=== PATIENT | female | born 1965 | race Caucasian/White ===

== ENCOUNTER 2021-10-29 08:00 | Outpatient (CLI) | payer OTHER | END 2021-10-29 23:59 | disposition home or self-care (01) | LOC: LAB.N 08:00 | PROVIDERS: ATTEND Physician Assistant Medical | DX: B34.9 Viral infection, unspecified (principal); Z20.822 Contact with and (suspected) exposure to COVID-19 ==

== ENCOUNTER 2022-08-17 08:14 | Outpatient (CLI) | payer OTHER ==
--- NOTE | 2022-08-19 12:15 | MRI Report ---
PROCEDURE: KNEE WO - LT INDICATIONS: LEFT KNEE PAIN TECHNIQUE: Noncontrast sagittal PD fast spin echo and T2 fast spin echo with fat saturation, sagittal 3-D gradie nt sequence with fat saturation; coronal T1 spin echo and PD fast spin echo with fat saturation, and axial PD fast spin echo with fat saturation through the knee. COMPARISON: None. FINDINGS: Image quality: Excellent. Menisci: There is medial meniscal extrusion. There is degenerative tear of the body and posterior hor n of the medial meniscus. The lateral meniscus demonstrates normal morphology. There is intrasubstanc e degeneration of the anterior horn of the lateral meniscus. The meniscal root ligaments appear inta ct. Cruciate ligaments: The anterior and posterior cruciate ligaments appear intact. Medial structures: There is mild thickening in the superior aspect of the medial collateral ligament , compatible with remote grade 1 sprain or scarring. No acute MCL tear. The semimembranosus tendon i nsertions, and meniscocapsular junction appear intact. Visualized portions of the pes anserinus tend ons appear normal. No abnormal bursal fluid. Lateral structures: The lateral collateral ligament, long and short heads of the biceps femoris tend on appear intact. The popliteus tendon appears normal. Iliotibial band appears normal. Anterior structures: The quadriceps and patellar tendons appear intact. Patellar alignment is dell l. No femoral trochlear dysplasia or ventral trochlear prominence. No edema in the infrapatellar fa t pad. Bones and cartilage: No bone marrow contusions or fractures. There is tricompartmental cartilage thi nning and fibrillation, most pronounced in the medial femorotibial compartment where near denuded art icular surface is seen in the medial femoral condyle and medial temporal plateau. There is prominent red marrow in the distal femur. Joint space: There is moderate knee joint fluid. Tiny Arauz's cyst. Normal appearing synovial plica e are incidentally noted. IMPRESSION: 1. Medial meniscal extrusion and degenerative tear of the body and posterior horn of the medial menis cus. 2. Tricompartmental cartilage thinning, most pronounced in the medial femorotibial compartment. 3. Moderate knee joint effusion. 4. Prominent red marrow in the distal femur. This finding is nonspecific and may be secondary to ciga rette smoking, strenuous hepatic activity were hematological disorder such as anemia. Recommend clini freeman correlation. Reviewed by: Jett Morel MD on 08/19/2022 11:14 AM LADONNA Approved by: Jett Morel MD on 08/19/2022 11:14 AM WISAI Station ID: [id number]
== END 2022-08-17 08:15 | disposition home or self-care (01) ==
LOC: DI 08:14
PROVIDERS: ATTEND Student in an Organized Health Care Education/Training Program
DX: S83.242A Other tear of medial meniscus, current injury, left knee, initial encounter (principal); M25.462 Effusion, left knee

== ENCOUNTER 2023-02-22 16:09 | Emergency (ER) | payer OTHER ==
--- OUTSIDE RECORDS SUMMARY | 2023-02-22 16:48 | EXTERNAL MEDICAL SUMMARY RPT | Continuity of Care Document ---
Author Name Unknown Address [address] [place] [address] Phone Organization [place] Address [address] [place] [address] Phone Problems date description facility 2022-12-13 10:01 Urinary tract infection, site n ot specified [facility] 2022-12-13 10:01 Hyperglycemia, unspecified [facility] 2022-12-13 10:01 Encounter for preprocedural lab oratory examination [facility] 2022-12-13 10:01 Encounter for other preprocedur al [facility] Results/Labs test date facility value unit notes
[2023-02-22] MEDS ORDERED: TETANUS/DIPHTHERIA/PERTUSSIS 0.5 ML SYRINGE IM ONE (16:51)
--- NOTE | 2023-02-22 17:18 | ED Physician Documentation ---
PD HPI UPPER EXT INJURY - Stated complaint Stated Complaint: LT HAND LAC - Chief complaint Chief Complaint: Laceration - History obtained from History obtained from: Patient - Additonal information Additional information: Patient is a 57-year-old female presenting for evaluation of laceration to her left pinky finger that occurred while peeling apples. She is unsure of her last tetanus. Does not take a blood thinner. She reports the side of blood makes her feel faint and was noted to have a low blood pressure at triage due to looking at her wound. Review of Systems Skin: reports: Laceration (s) PD PAST MEDICAL HISTORY - Present Medications Home Medications: Ambulatory Orders Medication Instructions Recorded Confirmed Sertraline [Zoloft] 50 mg PO DAILY 02/22/23 02/22/23 - Allergies Allergies/Adverse Reactions: Allergies Allergy/AdvReac Type Severity Reaction Status Date / Time No Known Drug Allergies Allergy Verified 02/22/23 16:18 PD ED PE NORMAL - General General: Alert and oriented X 3, No acute distress, Well developed/nourished - HEENT HEENT: Atraumatic - Respiratory Respiratory: No respiratory distress - Extremities Extremities: Other (1.5 cm laceration to Medial aspect of distal left pinky finger; Normal range of motion at PIP and DIP joints) Results - Vitals Vitals: Vital Signs - 24 hr 02/22/23 02/22/23 16:11 17:28 Temperature 36.1 C L Heart Rate 58 L 82 Respiratory 20 18 Rate Blood Pressure 70/46 L 94/61 O2 Saturation 98 100 Oxygen O2 Source Room air Procedures - Laceration (location) Left fifth digit Length in cm: 1 Wound type: Curved Neurovascular status: Sensory intact, Motor intact, Vascular intact Tendon involvement: Tendon intact Anesthesia: Lidocaine 1% Wound preparation: Hibiclens, Irrigated copiously NS Skin layer closure: Interrupted, Size #-0 - enter number (4.0), Sutures - enter # (5) Other: Patient tolerated well, No complications, Neurovascular intact, Dressing applied, Tetanus booster given PD Medical Decision Making - ED course Complexity details: re-evaluated patient ED course: Patient with laceration to her left pinky finger. No signs of tendon injury. Neurovascularly intact. Wound cleaned, irrigated and closed with sutures. Patient does report being very sensitive to the sight of blood and was hypotensive at triage and feeling lightheaded. She was allowed to lay down during suture repair and is feeling better. Repeat blood pressure has improved.She was given a tetanus booster. Patient counseled on wound care instructions, need to return for suture removal as well as concerning symptoms to return for. Departure - Departure Disposition: 01 Home, Self Care Clinical Impression: Laceration of left little finger, Vagal reaction Condition: Stable Instructions: ED Laceration Ext Sutr Stap Tape Comments: Come back for any signs of infection which would include: Redness, swelling, drainage, increased pain, or fevers. You can wash it soap and water. Keep it covered and moist with bacitracin ointment which is available over the counter; avoid neosporin. Follow-up with your physician in about 10 days for suture removal. Forms: PCP List Discharge Date/Time: 02/22/23 17:30
[2023-02-22 17:34] VITALS: BP 94/61; O2SAT 100
== END 2023-02-22 17:30 | disposition home or self-care (01) ==
LOC: ED 16:09
DX: S61.217A Laceration without foreign body of left little finger without damage to nail, initial encounter (principal); R55 Syncope and collapse
CPT/HCPCS: 12001; 90471; 99282